=== PATIENT | male | born 1950 | race Caucasian/White ===

== ENCOUNTER 2019-12-16 06:37 | Observation (INO) ==
[2019-12-16] MEDS ORDERED: GI COCKTAIL ED USE PO ONE (07:11)
[2019-12-16 07:13] LABS: Basophils # (auto) 0.03 K/uL (0-0.2); Basophils % (auto) 0.7 %; Eosinophils # (auto) 0.13 K/uL (0-0.5); Eosinophils % (auto) 3.1 %; Hematocrit (blood only) 34.5 % (42-52); Hemoglobin 11.8 g/dL (14.0-18.0); Immature Granulocytes # (auto) 0.01 K/uL (0.00-0.02); Immature Granulocytes % (auto) 0.2 %; Lymphocytes # (auto) 1.35 K/uL (1.2-3.4); Lymphocytes % (auto) 31.8 %; Mean Corpuscular Hemoglobin 31.3 pg (25-34); Mean Corpuscular Hgb Conc 34.2 g/dL (32-36); Mean Corpuscular Volume 91.5 fL (80-100); Mean Platelet Volume 9.8 fL (7.4-10.4); Monocytes # (auto) 0.27 K/uL (0.11-0.59); Monocytes % (auto) 6.4 %; Neutrophils # (auto) 2.46 K/uL (1.4-6.5); Neutrophils % (auto) 57.8 %; Platelet Count 191 K/uL (130-400); RDW Coefficient of Variation 12.4 % (11.5-14.5); RDW Standard Deviation 41.6 fL (36.4-46.3); Red Blood Count 3.77 M/uL (4.7-6.1); White Blood Count 4.25 K/uL (4.8-10.8)
--- NOTE | 2019-12-16 07:19 | Emergency Department Note ---
History of Present Illness General Chief Complaint: Chest Pain Stated Complaint: CHEST PAIN Time Seen by Provider: 12/16/19 06:54 Source: patient Mode of arrival: ambulatory Limitations: no limitations History of Present Illness Provider Complaint: chest pain Maximum Pain Intensity: 5 This is a 69-year-old male who presents to the ED with a chief complaint of a severe sharp retrosternal chest pain that was nonradiating. It started around 4 AM last night. He reported that it was a constant pain. EMS gave him sublingual nitro and aspirin and brought him here for evaluation. He thinks that the aspirin and sublingual nitro helped a little. 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 He did state that he does not feel that it was related to these things. The patient did drink alcohol heavily last night and also ate [employer] hot dog with chili. The patient did report a little dizziness and some associated shortness of breath. No nausea vomiting. No fevers or recent illness. He did not take anything for his symptoms. He did recently drive from [place] the [place] yesterday and arrived yesterday evening around 11 PM. He drank the alcohol and had the hotdogs after this. He states that he drank too much alcohol. Home Medications Home Medications Medication Instructions Recorded Confirmed Type dextroamphetamine-amphetamine 15 mg PO DAILY 12/16/19 12/16/19 History [Adderall XR] esomeprazole magnesium [Nexium] 20 mg PO DAILY 12/16/19 12/16/19 History lamotrigine [Lamictal XR] 200 mg PO DAILY 12/16/19 12/16/19 History Allergies Allergy/AdvReac Type Severity Reaction Status Date / Time No Known Allergies Allergy Unverified 12/16/19 06:54 Past Med/Surg History Social History Smoking Status: Never smoker Feels Safe at Home: Yes Review of Systems A total of 10 systems reviewed and were otherwise negative Physical Exam Vital Signs Vital Signs - 24 hr 12/16/19 06:47 12/16/19 07:00 12/16/19 07:10 Temperature 36.5 C Temperature Source Oral Pulse Rate 41 L Pulse Rate [Apical] 47 L Pulse Rate from SpO2 Sensor Pulse Rhythm [Apical] Regular Respiratory Rate 18 18 Respiratory Effort / Characteristics Non-Labored Spontaneous Respiratory Depth Normal Respiratory Pattern Regular Blood Pressure 133/78 Blood Pressure [Right Arm] 108/76 Blood Pressure Mean 96 Blood Pressure Mean [Right Arm] 86 Pulse Oximetry 98 97 98 Oxygen Delivery Method Room Air Room Air Room Air Sepsis Recent Fever Within 48 Hours No Sepsis New/Unexplained Change in Mental Status N/A Sepsis Action Taken by Nursing No Action Required 12/16/19 07:30 12/16/19 08:00 12/16/19 08:30 Temperature Temperature Source Pulse Rate 55 L 45 L Pulse Rate [Apical] 46 L Pulse Rate from SpO2 Sensor 54 L 47 L Pulse Rhythm [Apical] Regular Respiratory Rate 16 16 18 Respiratory Effort / Characteristics Non-Labored Spontaneous Respiratory Depth Normal Respiratory Pattern Regular Blood Pressure 118/80 112/74 Blood Pressure [Right Arm] 126/83 Blood Pressure Mean 90 86 Blood Pressure Mean [Right Arm] 97 Pulse Oximetry 97 98 100 Oxygen Delivery Method Room Air Sepsis Recent Fever Within 48 Hours Sepsis New/Unexplained Change in Mental Status Sepsis Action Taken by Nursing CONSTITUTIONAL/VITAL SIGNS: Reviewed / noted above. GENERAL: Non-toxic in appearance. INTEGUMENTARY: Warm, dry, and [place]. HEAD: Normocephalic. EYES: without scleral icterus or trauma. ENT/OROPHARYNX: clear and moist. LYMPHADENOPATHY/NECK: Is supple without lymphadenopathy or meningismus. RESPIRATORY: Lungs clear and equal. CARDIOVASCULAR: Regular rate and rhythm. CHEST wall: There is some chest wall tenderness to palpation. GI/ABDOMEN: Soft and nontender. No organomegaly or pulsatile mass. No rebound or guarding. Normal bowel sounds. EXTREMITIES: Warm and well perfused. BACK: No CVA tenderness. NEUROLOGICAL: Intact without focal deficits. PSYCHIATRIC: normal affect. MUSCULOSKELETAL: Normally developed with good muscle tone. TRIAGE NURSING DOCUMENTATION REVIEWED. Course Administered Medications Discontinued Medications Al Hydrox/Mg Hydrox/Simethicone (Gi Cocktail Ed Use) 1 dose PO ONE ONE Stop: 12/16/19 07:12 Last Admin: 12/16/19 07:17 Dose: 1 dose Documented by: [id number] Medical Decision Making Differential Diagnosis The differential that was considered includes acute myocardial infarction, acute coronary syndrome, myocarditis, pericarditis, pericardial effusions /tamponade, esophageal perforation, thoracic aortic dissection, pulmonary embolism, p neumonia, pneumothorax, pancreatitis, shingles, acute cholecystitis, perforated abdominal viscus. Medical Records Attestation: I reviewed the patient's medical records. Home Medications Current Medication List: was personally reviewed by me Laboratory Data Attestation: I reviewed the patient's lab results. Result diagrams: 12/16/19 06:50 12/16/19 06:50 Labs: Lab Results 12/16/19 12/16/19 12/16/19 Range/Units 06:50 06:50 06:50 WBC 4.25 L (4.8-10.8) K/uL RBC 3.77 L (4.7-6.1) M/uL Hgb 11.8 L (14.0-18.0) g/dL Hct 34.5 L (42-52) % MCV 91.5 (80-100) fL MCH 31.3 (25-34) pg MCHC 34.2 (32-36) g/dL RDW Std Deviation 41.6 (36.4-46.3) fL RDW Coeff of Jeanette 12.4 (11.5-14.5) % Plt Count 191 (130-400) K/uL MPV 9.8 (7.4-10.4) fL Immature Gran % (Auto) 0.2 % Neut % (Auto) 57.8 % Lymph % (Auto) 31.8 % [place] % (Auto) 6.4 % Eos % (Auto) 3.1 % Baso % (Auto) 0.7 % Neut # (Auto) 2.46 (1.4-6.5) K/uL Lymph # (Auto) 1.35 (1.2-3.4) K/uL [place] # (Auto) 0.27 (0.11-0.59) K/uL Eos # (Auto) 0.13 (0-0.5) K/uL Baso # (Auto) 0.03 (0-0.2) K/uL Immature Gran # (Auto) 0.01 (0.00-0.02) K/uL PT 11.0 (9.0-12.0) Seconds INR 1.0 (0.9-1.1) APTT 29.9 (21.0-31.0) Seconds PTT Ratio 1.1 Sodium 138 (136-145) mmol/L Potassium 3.9 (3.5-5.1) mmol/L Chloride 109 H (98-107) mmol/L Carbon Dioxide 21 (21-32) mmol/L Anion Gap 8.0 (3-11) BUN 21 H (7-18) mg/dl Creatinine 0.90 (0.6-1.4) mg/dl Est Cr Clr Drug Dosing 101.2 ml/min Est GFR ( Amer) 100.6 Est GFR (Non-Af Amer) 86.8 BUN/Creatinine Ratio 23.3 H (10-20) Glucose 103 H (70-99) mg/dl Calcium 8.2 L (8.5-10.1) mg/dl Total Bilirubin 0.3 (0.2-1) mg/dl AST 20 (15-37) U/L ALT 24 (12-78) U/L Alkaline Phosphatase 50 (45-117) U/L Troponin I < 0.015 (0-0.045) ng/ml Total Protein 6.9 (6.4-8.2) gm/dl Albumin 3.5 (3.4-5.0) gm/dl Globulin 3.4 (2.5-4.0) gm/dl Albumin/Globulin Ratio 1.0 (0.9-2) Lipase 104 (73-393) U/L Imaging Data Chest x-ray: Attestation: I personally reviewed and interpreted this imaging study as follows: My impression: NAD Radiologist's impression: XR chest 1V portable HISTORY: Atypical Chest Pain COMPARISON: None. FINDINGS: No pneumothorax. No pleural effusions. The heart is mildly enlarged. There is mild central pulmonary vascular congestion without overt edema. No focal lung consolidations to suggest pneumonia. IMPRESSION: Mild cardiomegaly with mild central pulmonary vascular congestion. ECG Data Attestation: I personally reviewed and interpreted this ECG as follows: Indication: chest pain Rate (beats per minute): 41 Rhythm: sinus bradycardia Findings: no PVC, no ST elevation and no prolonged QT MDM Narrative This is a 69-year-old male who presents with chest pain as noted above. He describes it as a sharp retrosternal pain. The patient has recently driven from [place] to [facility] to visit family. Denies any pain in his legs. The patient's CBC and chemistry panel was unremarkable. Troponin is negative, lipase is negative and chest x-ray is negative for acute disease. EKG sinus sinus bradycardia at a rate of 41. His normal heart rate is in the 50-60 range, according to the patient. The patient was told the results of the test. I did discuss with him the possibility of being observed in the hospital for symptoms although he felt comfortable going home. The patient will return for any worsening or new concerns. Impression & Plan Retrosternal chest pain Discharge Plan Visit Data Chief Complaint: Chest Pain Stated Complaint: CHEST PAIN ED Provider: Teddy Jordan Discharge Problem: Retrosternal chest pain Patient Disposition: Home - Self-Care Condition: Good Discharge Instructions Activity Restrictions/Additional Instructions: Follow-up with your doctor for further care and evaluation in 1-2 days if symptoms persist. Return to the emergency department for worsening or new symptoms or any concerns. You have been examined and treated today on an emergency basis only. This is not a substitute for, or an effort to provide, complete comprehensive medical care. It is impossible to recognize and treat all injuries or illnesses in a single emergency department visit. It is therefore important that you follow up closely with your doctor. Call as soon as possible for an appointment. Your test results did not show any concerning abnormalities with regards to your heart or lungs. Your test results today do not predict or preclude any future issues. Forms Stand Alone Forms: [facility], Virtual Emergency Department, Important Visit Information Prescriptions Prescriptions: No Action esomeprazole magnesium [Nexium] 20 mg Capsule,Delayed Release(Dr/Ec) 20 mg PO DAILY RF: 0 dextroamphetamine-amphetamine [Adderall XR] 15 mg Capsule,Extended Release 24hr 15 mg PO DAILY RF: 0 lamotrigine [Lamictal XR] 200 mg Tablet Extended Release 24hr 200 mg PO DAILY RF: 0 Referrals Referrals: PCP,NO [Primary Care Provider] -
[2019-12-16 07:24] LABS: Partial Thromboplastin Ratio 1.1; Partial Thromboplastin Time 29.9 Seconds (21.0-31.0)
[2019-12-16 07:26] LABS: Alanine Aminotransferase 24 U/L (12-78); Albumin Level 3.5 gm/dl (3.4-5.0); Aspartate Aminotransferase 20 U/L (15-37); BUN Creatinine Ratio 23.3 (10-20); Blood Urea Nitrogen 21 mg/dl (7-18); Calcium 8.2 mg/dl (8.5-10.1); Carbon Dioxide 21 mmol/L (21-32); Chloride 109 mmol/L (98-107); Creatinine Clr Calc Pharmacy 101.2 ml/min; Est GFR (African American) 100.6; Est GFR (Non-African American) 86.8; Glucose 103 mg/dl (70-99); Lipase 104 U/L (73-393); Potassium 3.9 mmol/L (3.5-5.1); Sodium 138 mmol/L (136-145)
[2019-12-16 07:31] LABS: Alkaline Phosphatase 50 U/L (45-117); Bilirubin,Total 0.3 mg/dl (0.2-1); Globulin 3.4 gm/dl (2.5-4.0); Total Protein 6.9 gm/dl (6.4-8.2); Troponin I < 0.015 ng/ml (0-0.045)
--- NOTE | 2019-12-16 09:20 | XRay Report ---
XR chest 1V portable HISTORY: Atypical Chest Pain COMPARISON: None. FINDINGS: No pneumothorax. No pleural effusions. The heart is mildly enlarged. There is mild central pulmonary vascular congestion without overt edema. No focal lung consolidations to suggest pneumonia. IMPRESSION: Mild cardiomegaly with mild central pulmonary vascular congestion. ACT 112: Negative or not required by law. Electronically signed by: Naveen Thomas M.D. 12/16/2019 9:19 AM
[2019-12-16] MEDS ORDERED: NITROGLYCERIN SL 0.4 MG/TAB TAB SL PRN ×2 (10:57→13:41)
[2019-12-16] MEDS ORDERED: NITROGLYCERIN SL 0.4 MG/TAB TAB ONE (11:02)
[2019-12-16] MEDS ORDERED: PANTOprazole 40 MG TAB PO STA (11:11)
--- NOTE | 2019-12-16 11:11 | History & Physical Report ---
Date of Service December 16, 2019 Assessment & Plan (1) Retrosternal chest pain: Possible ACS. Although non-exertional nature atypical. Suspect lead placement rather than ischemic changes between both EKGs. Repeat EKG stat. Repeat troponin now Nitroglycerin 0.4mg SL now - again helped with chest pain Will place nitroglycerin patch awaiting repeat troponin. (2) ADHD: Hold Adderall XR as above. (3) GERD (gastroesophageal reflux disease): Switch esomeprazole to pantoprazole as per hospital formulary. (4) Barretts esophagus: Notable history of this. Admission and Anticipated Discharge Date Admission Date: 12/16/2019 History of Present Illness Chief Complaint: Chest pain Primary Care Provider: NO PCP Jonathon Richards is a 69-year-old male with no cardiovascular history who presents to the ER with substernal chest pain. Drove up from [place] yesterday to visit family. Substernal chest pain without radiation started 4 AM. Severity 10/10 initially, lasted until he had his first nitro with EMS. He reports writhing around in pain at home. He called EMS and by the time they arrived he was in a position. Associated nausea and shortness of breath. No diaphoresis. No prior history of coronary artery disease, non-smoker, no diabetes. He reports hypercholesterolemia on his last lab test although was not recommended statin medication for this by his PCP. No significant family history of cardiovascular disease. He notes a prior history of reflux for which he takes his esomeprazole daily (last took this yesterday). However since starting treatment he has any other had mild heartburn brought on with stress and not recently. He eats chili dogs frequently without symptoms. He notes no exacerbating foods. He did have a chili dog and alcohol drink last night. His any severe reflux episode was at the time of his diagnosis in 1990 but he reports this was a much different feeling to his current chest pain being higher up and a burning sensation. He denies any fevers or chills, loss of taste or smell, cough, known COVID-19 exposure. Allergies Allergy/AdvReac Type Severity Reaction Status Date / Time No Known Allergies Allergy Unverified 12/16/19 06:54 Home Medications Home Medications Medication Instructions Recorded Confirmed Type dextroamphetamine-amphetamine 15 mg PO DAILY 12/16/19 12/16/19 History [Adderall XR] esomeprazole magnesium [Nexium] 20 mg PO DAILY 12/16/19 12/16/19 History lamotrigine [Lamictal] 200 mg PO DAILY 12/16/19 12/16/19 History Past Med/Surg History Social History Smoking Status: Never smoker Hx Alcohol Use: Yes Alcohol type: wine Hx Substance Use: No Preferred Language: Lebanese Communication Ability: Effective Party Host Required: No Beliefs That Will Affect Care: None Current Living Situation: Spouse Feels Safe at Home: Yes Review of Systems Review of Systems: 3-4 months ago mild left arm pain in C6 distribution, non exertional, notices it most when he sits down, not related to food, usually comes on for 10 to 20 minutes. He takes Adderall XR for the last 8 years for ADHD. Took this last yesterday. Reports symptoms under control with this medication. Longstanding calf cramping at night right > left. Describes classic symptoms plantar fasciitis although reports never having had this diagnosis. Constitutional: + fatigue (Last 3 to 4 months) Physical Exam Constitutional: well developed and well nourished; no acute distress Eyes: PERRL, conjunctivae normal, anicteric sclerae ENMT: external ear and nose normal, oropharynx normal Neck: trachea midline, no thyromegaly Respiratory: normal respiratory effort, lungs clear to auscultation Cardiovascular: Rate/Rhythm: regular rhythm and + bradycardic Heart Sounds: no murmur Vessels: radial pulses present; no JVD Extremities: normal capillary refill and + pedal edema (trace b/l ankles); no calf tenderness (No unilateral calf swelling) Gastrointestinal (Abdomen): normal bowel sounds, soft, nontender, no hepat osplenomegaly Musculoskeletal: no cyanosis or clubbing, extremities motor strength 5/5 Skin: no rashes, warm and dry Neurologic: moves all extremities and awake; no focal motor deficits and not confused Motor/Sensory: no sensory deficit (Pain over the C6 distribution nonreducible) Psychiatric: A+Ox3, euthymic affect Genitourinary: no CVA tenderness Lymphatic: no cervical or axillary lymphadenopathy Results & Data Results & Data ([facility]) Vital Signs (Past 12 Hours) Vital Signs Temp Pulse Pulse Resp BP BP Pulse Ox 12/16/19 11:04 144/87 H 12/16/19 11:00 60 21 142/84 H 98 12/16/19 10:30 44 L 16 135/82 96 12/16/19 10:00 43 L 17 136/82 99 12/16/19 08:30 46 L 18 126/83 100 12/16/19 08:00 45 L 16 112/74 98 12/16/19 07:30 55 L 16 118/80 97 12/16/19 07:10 98 12/16/19 07:00 47 L 18 108/76 97 12/16/19 06:47 36.5 C 41 L 18 133/78 98 Diagnostic Findings XR chest 1V portable IMPRESSION: Mild cardiomegaly with mild central pulmonary vascular congestion. ECG Indication: chest pain Rate (beats per minute): 41 Rhythm: sinus bradycardia Findings: no acute ischemic change Comparison ECG Date: no prior available Additional Comments: Suspected lead placement changes between two serial EKGs since QRS, T waves and p wave changed in lateral leads I and aVL Code Status & VTE Plan Code Status Full VTE Prophylaxis Plan VTE Prophylaxis will be ordered: Yes PG Care Time/CCT Total # of Minutes Spent Total Time Spent with Patient: Total time spent is greater than 50% in coordination of care (as documented) at patient's floor/unit and/or counseling patient: Coding Level of Care Code 96507 OBS Care - Level 3 Diagnoses Retrosternal chest pain R07.2 ADHD F90.9 GERD (gastroesophageal reflux disease) K21.9 Barretts esophagus K22.70
[2019-12-16] MEDS ORDERED: NITROGLYCERIN 2% OINTMENT 30GM TUBE EXT ONE (11:45)
[2019-12-16] MEDS ORDERED: ACETAMINOPHEN 325 MG TAB PO PRN (13:41)
[2019-12-16] MEDS ORDERED: ONDANSETRON INJ 2 MG/ML 2 ML VIAL IV PRN (13:41)
[2019-12-16] MEDS ORDERED: ALUMINUM/MAGNESIUM SUSP 30 ML UDC PO PRN (13:41)
--- NOTE | 2019-12-16 14:29 | XCELERA ---
[id number] \\[id number]
[2019-12-16] MEDS: NITROGLYCERIN 2% OINTMENT 30GM TUBE EXT SCH (19:30)
[2019-12-17] MEDS: NITROGLYCERIN 2% OINTMENT 30GM TUBE EXT SCH ×2 (06:07)
--- NOTE | 2019-12-17 06:43 | Electrocardiogram Report ---
Test Reason : Blood Pressure : / mmHG Vent. Rate : 041 BPM Atrial Rate : 041 BPM P-R Int : 172 ms QRS Dur : 094 ms QT Int : 516 ms P-R-T Axes : -22 051 053 degrees QTc Int : 425 ms Marked sinus bradycardia Abnormal ECG No previous ECGs available Confirmed by Nilesh Morrison ([id number]) on 12/17/2019 6:42:51 AM Referred By: REFERRED SELF Confirmed By:Nilesh Morrison
--- NOTE | 2019-12-17 06:44 | Electrocardiogram Report ---
Test Reason : Blood Pressure : / mmHG Vent. Rate : 043 BPM Atrial Rate : 043 BPM P-R Int : 158 ms QRS Dur : 098 ms QT Int : 494 ms P-R-T Axes : 023 126 150 degrees QTc Int : 417 ms Marked sinus bradycardia Left posterior fascicular block Inferior infarct , age undetermined Abnormal ECG When compared with ECG of 16-DEC-2019 06:44, Left posterior fascicular block is now Present Given change in P wave morphology in I (with QRS and T wave change), consider incorrect lead placemen t Nonspecific T wave abnormality now evident in Inferior leads Reconfirmed by Nilesh Morrison ([id number]) on 12/17/2019 6:53:36 AM Referred By: REFERRED SELF Confirmed By:Nilesh Morrison
--- NOTE | 2019-12-17 06:52 | Electrocardiogram Report ---
Test Reason : Blood Pressure : / mmHG Vent. Rate : 049 BPM Atrial Rate : 049 BPM P-R Int : 184 ms QRS Dur : 096 ms QT Int : 480 ms P-R-T Axes : 057 048 043 degrees QTc Int : 433 ms Sinus bradycardia Otherwise normal ECG When compared with ECG of 16-DEC-2019 09:49, Left posterior fascicular block is no longer Present Criteria for Inferior infarct are no longer Present Nonspecific T wave abnormality no longer evident in Inferior leads Nonspecific T wave abnormality no longer evident in Lateral leads Confirmed by Nilesh Morrison ([id number]) on 12/17/2019 6:51:54 AM Referred By: REFERRED SELF Confirmed By:Nilesh Morrison
[2019-12-17 07:08] LABS: Basophils # (auto) 0.03 K/uL (0-0.2); Basophils % (auto) 0.6 %; Eosinophils % (auto) 2.1 %; Hematocrit (blood only) 35.4 % (42-52); Hemoglobin 12.4 g/dL (14.0-18.0); Immature Granulocytes # (auto) 0.01 K/uL (0.00-0.02); Immature Granulocytes % (auto) 0.2 %; Lymphocytes # (auto) 1.21 K/uL (1.2-3.4); Lymphocytes % (auto) 25.3 %; Mean Corpuscular Hemoglobin 31.9 pg (25-34); Mean Platelet Volume 9.8 fL (7.4-10.4); Monocytes # (auto) 0.36 K/uL (0.11-0.59); Monocytes % (auto) 7.5 %; Neutrophils # (auto) 3.07 K/uL (1.4-6.5); Neutrophils % (auto) 64.3 %; Platelet Count 193 K/uL (130-400); RDW Coefficient of Variation 12.4 % (11.5-14.5); RDW Standard Deviation 41.2 fL (36.4-46.3); Red Blood Count 3.89 M/uL (4.7-6.1); White Blood Count 4.78 K/uL (4.8-10.8)
[2019-12-17 07:32] LABS: BUN Creatinine Ratio 20.3 (10-20); Blood Urea Nitrogen 21 mg/dl (7-18); Calcium 8.8 mg/dl (8.5-10.1); Carbon Dioxide 24 mmol/L (21-32); Chloride 108 mmol/L (98-107); Creatinine Clr Calc Pharmacy 80.9 ml/min; Est GFR (African American) 85.5; Est GFR (Non-African American) 73.8; Glucose 92 mg/dl (70-99); Potassium 3.8 mmol/L (3.5-5.1); Sodium 139 mmol/L (136-145)
[2019-12-17 07:37] LABS: Troponin I < 0.015 ng/ml (0-0.045)
[2019-12-17] MEDS ORDERED: ASPIRIN 81 MG ECTAB PO SCH (09:00)
[2019-12-17] MEDS ORDERED: lamoTRIgine 100 MG TAB PO SCH (09:00)
[2019-12-17] MEDS ORDERED: PANTOprazole 40 MG TAB PO SCH (09:00)
--- NOTE | 2019-12-17 10:26 | Discharge Summary ---
Date of Service December 17, 2019 Admission HPI Per Admitting Provider Jonathon Richards is a 69-year-old male with no cardiovascular history who presents to the ER with substernal chest pain. Drove up from [place] yesterday to visit family. Substernal chest pain without radiation started 4 AM. Severity 10/10 initially, lasted until he had his first nitro with EMS. He reports writhing around in pain at home. He called EMS and by the time they arrived he was in a position. Associated nausea and shortness of breath. No diaphoresis. No prior history of coronary artery disease, non-smoker, no diabetes. He reports hypercholesterolemia on his last lab test although was not recommended statin medication for this by his PCP. No significant family history of cardiovascular disease. He notes a prior history of reflux for which he takes his esomeprazole daily (last took this yesterday). However since starting treatment he has any other had mild heartburn brought on with stress and not recently. He eats chili dogs frequently without symptoms. He notes no exacerbating foods. He did have a chili dog and alcohol drink last night. His any severe reflux episode was at the time of his diagnosis in 1990 but he reports this was a much different feeling to his current chest pain being higher up and a burning sensation. He denies any fevers or chills, loss of taste or smell, cough, known COVID-19 exposure. Principal Diagnosis Pt has had no return of chest pain, SOB, nausea since being given nitro by EMS [facility] to the ED. He states that prior to coming to [place] from [place], he was quite busy with a lot of stressful activities and not much sleep the last few days. Then they drove 13 hours to get here. He feels that this contributed to his sx. Pt states that the chest pain he was having was similar to pain he has had from his Fuller's but was far more intense than that pain. Pt tells me that he is overdue for his surveillance scopes for his Fuller's. Pt is generally very physically active. He does many projects around his house, including recently hauling and installing artificial grass, which was quite labor intensive. 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 He has lost 35 lbs in the last year with diet and exercise. He has never had chest pain with exertion with any of his activites. Discharge Exam Constitutional WD/WN, vitals as above Eyes normal visual smart by confrontation and + anicteric sclerae Neck normal visual inspection and trachea midline Respiratory normal respiratory effort, lungs clear to auscultation Cardiovascular Rate/Rhythm: regular rate and regular rhythm Gastrointestinal (Abdomen) Inspection/Auscultation: abdomen not distended Percussion/Palpation: abdomen soft; abdomen nontender Musculoskeletal Head/Neck/Chest: normocephalic and head atraumatic Skin no rashes, warm and dry Neurologic awake; not confused Speech / Cognition: normal speech Psychiatric A+Ox3, euthymic affect Discharge Data Allergies Allergy/AdvReac Type Severity Reaction Status Date / Time No Known Allergies Allergy Unverified 12/16/19 06:54 Consultations 12/16/19 12:02 ED Decision to Admit Stat 12/17/19 10:18 Consult Health Information Management Stat Hospital Course (1) Retrosternal chest pain: Concern for ACS initially given resolution with nitro, however pain was non-exertional. No return of pain since [facility] Trop neg x4 EKG neg for acute CXR neg for acute CBC, PRP WNL Pt was tested for COVID-19 in the ED and this was neg ECHO with EF 60-65% and no structural issues noted We did discuss option of stress testing, however given pt's hx of regular exertional activity and no issues with this at baseline, pt would prefer to f/u with this if needed when he returns home Did discuss diet, Fuller's as possible issues. Pt states that he is overdue for his surveillance monitoring. Also discussed potential to have scoping done here tomorrow if pt would prefer, but he would prefer to f/u with this with his usual GI at home. Pt states that lipids checked recently with PCP and slightly elevated, but working on further diet/exercise for this. This was not rechecked. 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 If you have return of your symptoms, you should return to the ED. You may need to have a stress test as we discussed. Pending Studies at Discharge: No Stand-Alone Forms: [facility] [employer], Smoking Cessation Medications and DC Order Prescriptions: Continued esomeprazole magnesium [Nexium] 20 mg Capsule,Delayed Release(Dr/Ec) 20 mg PO DAILY RF: 0 dextroamphetamine-amphetamine [Adderall XR] 15 mg Capsule,Extended Release 24hr 15 mg PO DAILY RF: 0 lamotrigine [Lamictal] 200 mg tablet 200 mg PO DAILY RF: 0 Discharge Orders: Discharge Order (Routine); Ordered 12/17/19 Ordered By: Blaire Spencer Admission Data Admit Date/Time: 12/16/19 12:49 Attending Provider: Blaire Spencer Admit Provider: Alan Holley Primary Care Provider: JC,JOANNE Other Providers: Alan Holley Coding Level of Care Code D/C Day Management >30 mins Diagnoses Retrosternal chest pain R07.2 ADHD F90.9 GERD (gastroesophageal reflux disease) K21.9 Barretts esophagus K22.70
== END 2019-12-17 12:02 | disposition home or self-care (01) ==
LOC: ED 06:37 → 2S 06:37 → SUATTDRO 12:49 → 2S 13:15